=== PATIENT | female | born 1940 | race Caucasian/White ===

== ENCOUNTER 2024-02-02 17:49 | Emergency (ER) | payer MEDICARE, SELFPAY ==
[2024-02-02 18:12] VITALS: BP 161/83
--- NOTE | 2024-02-02 19:40 | ED.MUSCINJ ---
HPI-Injury
General
Chief Complaint: Fall
Source: patient
Exam Limitations: none
Time Seen by Provider: 02/02/24 19:26
Travel History
Have you had any contact with someone who has COVID-19?: No
Do you have any symptoms of coronavirus? Fever > 100 degrees, chills, cough, shortness of breath, sore throat, loss of taste or smell, muscle aches, or headache?: No
History of Present Illness-Injury
Initial Injury comments:
83-year-old female [id number] presents with left shoulder and left wrist pain after falling down a step. This happened earlier this morning. She did not hit her head. She is not anticoagulated. She is companied by her son and .
She lives with both of them. She typically does use a walker to ambulate. They also have a wheelchair in the house.
Past History
Past History
ED Past Medical History: HTN
ED Past Surgical History: Orthopedic
Social History
Tobacco: Non-smoker
Alcohol: None
Drug: None
Personal:
Living: with family
Phy Exam
Physical Exam
Physical Exam:
General: Well-appearing female no acute respiratory distress
HEENT: NC/AT
MSK: Spine nontender, left shoulder tender over proximal humerus. Left wrist tender as well with swelling.
skin Is intactc
Vascular: 2+ radial pulse left wrist
Injury Course
Orders/Labs/Results
Orders:
Orders
02/02/24 18:13
CR Humerus - Left Min 2 Views* Urgent
Comment:
Reason For Exam: pain, trauma
Hand, Left 3 View [CR Hand - Left Min 3 Views] Urgent
Comment:
Reason For Exam: pain, trauma
02/02/24 19:47
Acetaminophen [Tylenol] 650 mg PO NOW STA
MDM/Problems Addressed
Differential Diagnosis Includes:
Mechanical fall with left wrist and shoulder pain. Consider fracture or sprain versus dislocation. I personally visualized x-rays of the left humerus which demonstrate a proximal humerus fracture slightly angulated
And the left hand x-rays demonstrate a slightly angulated distal radius fracture. This is extra-articular. Patient will be placed in a volar wrist splint and a sling. She is accompanied by family. They are okay with discharge and follow-up with
orthopedics.
*Critical Care Note
Total Time (30-74mins, 75-104mins- exclusive of procedures): Not Applicable
ED Attending Note
-
Portions of this chart may have been created with voice recognition software.� Occasional wrong word or��sound alike� substitutions may have occurred due to the inherent limitations of voice recognition software.
Discharge Plan
Departure
Patient Disposition: Home (Routine Discharge)
Date of Disposition: 02/02/24
Time of Disposition: 19:46
Patient with high blood pressure during this ER visit?: No
Discharge Problem:
Fracture of proximal end of humerus, Distal radius fracture, left
Instructions: Muscle and Bone Pain (DC)
Referrals:
Jack Conde MD [Family Provider] -
Kirit Dupont MD [Active] -
Activity Restrictions/Additional Instructions:
Keep splint on and dry. Use sling for support. Use Tylenol for pain. Return if worse otherwise follow-up with orthopedics
Interventions
Interventions:
*Risk Screen - Suicide Last Done: 02/02/24 20:32
*General Assessment Last Done: 02/02/24 20:32
*Neglect/Abuse Screening Last Done: 02/02/24 20:32
ED- Fall Risk Assessment Last Done: 02/02/24 20:33
*ED COVID-19 Vaccine History Last Done: 02/02/24 20:32
*Nursing Disposition Last Done: 02/02/24 20:33
ED-Musculoskeletal Assessment Last Done: 02/02/24 20:32
ED- Neurological Assessment Last Done: 02/02/24 20:32
ED-Skin Assessment Last Done: 02/02/24 20:32
Discharge Date and Time
Discharge Date/Time: 02/02/24 20:33
Print Language: PARAGUAYAN
[2024-02-02] MEDS: TYLENOL 650 MG PO (20:22)
== END 2024-02-02 20:33 | disposition home or self-care (01) ==
LOC: EMR 17:49
PROVIDERS: EMERGENCY PHYSICIAN Emergency Medicine; FAMILY PHYSICIAN Internal Medicine
DX: S42.202A Unspecified fracture of upper end of left humerus, initial encounter for closed fracture (principal); S52.502A Unspecified fracture of the lower end of left radius, initial encounter for closed fracture; W10.9XXA Fall (on) (from) unspecified stairs and steps, initial encounter; I10 Essential (primary) hypertension
CPT/HCPCS: 99283; 29125; 73060; 73130

== ENCOUNTER 2024-08-29 23:12 | Inpatient (IN) | payer MEDICARE, SELFPAY ==
[2024-08-29 16:29] VITALS: BP 112/74
--- NOTE | 2024-08-29 17:35 | ED.GENMED ---
History of Present Illness
General
Chief Complaint: Fall
Source: patient and family
Time Seen by Provider: 08/29/24 17:24
History of Present Illness
History of Present Illness:
83-year-old female presents emergency department after a fall last night around 11 PM. In the presence of her , she was walking up the steps and fell backwards from the height of 1 step. She did not hit her head. She was assisted up and
brought over to the couch where she slept for the night. Since waking today, she is complain of pain in the left hip/pelvic area with standing and walking. She at one point was complaint of left shoulder pain although she denies to me now.
Patient denies any other complaints.
Past History
Past History
ED Past Medical History: HTN and Other (Dementia)
ED Past Surgical History: Orthopedic
Social History
Tobacco: Non-smoker
Alcohol: None
Drug: None
Personal:
Living: with family
Phy Exam
Physical Exam
Physical Exam:
GENERAL: Alert , in no apparent distress
EYE: pupils equal and reactive, no photophobia, no nystagmus
NECK: Supple, no significant adenopathy cervical collar in place, no midline tenderness.
ENT: o/p clr, mmm, no rapp, no raccoon.
CARDIAC: Regular rate and rhythm .
LUNGS: Clear breath sounds bilaterally, no acute respiratory distress, no wheezes/rales/rhonchi
ABDOMEN: Soft, without focal tenderness, no r/g
NEUROLOGICAL: Alert but not fully oriented, no focal neuro deficits
SKIN: Warm and dry, skin intact.
MUSCULOSKELETAL: No edema, well perfused. FROM of le bilaterally however c/o pain with L le ROM at hip area, no shortening/deformity, nvit. FROM of ue bilat without limitation or pain.
PSYCH: Normal and appropriate interaction.
Course
Orders/Labs/Results
Orders:
Orders
08/29/24 17:33
CT Cervical Spine W/o Iv Contr Urgent
Comment:
Reason For Exam: FALL
CT Head W/o Iv Contrast Urgent
Comment:
Reason For Exam: DEMENTIA, FALL
Hip, Left 2-3 Views [CR Hip - LT w/wo Pel 2-3 Vw*] Urgent
Comment:
Reason For Exam: FALL
Include a pelvis x-ray?: Yes
08/29/24 17:38
Shoulder, Left, Trauma CR [CR Shoulder, Trauma - Left] Urgent
Comment:
Reason For Exam: fall
08/29/24 18:30
CR Chest Portable - 1 View Urgent
Comment:
Reason For Exam: SUSPECTED L PTX
Reason Study Needs to be Portable: Unable to Transport
08/29/24 20:05
Complete Blood Count/With Diff Urgent
Comprehensive Metabolic Panel Urgent
08/29/24 20:08
Morphine Sulfate 4 mg .ROUTE .STK-MED ONE
08/29/24 20:09
Morphine Sulfate 4 mg IV NOW STA
08/29/24 20:43
Cr Chest Portable [CR Chest Portable - 1 View] Urgent
Comment:
Reason For Exam: post chest tube insertion
Reason Study Needs to be Portable: Unable to Transport
08/29/24 21:04
CT Chest W/o Iv Contrast Urgent
Comment:
Reason For Exam: ptx, trauma
Abnormal Lab Results
08/29/24
20:05
RBC 3.68 L 10^6/uL
(4.20-5.40)
Hgb 11.5 L g/dL
(12.0-16.0)
Hct 33.2 L %
(37.0-47.0)
MCH 31.3 H pg
(27.0-31.0)
Absolute Lymphs (auto) 0.8 L 10^3/uL
(1.2-3.4)
Absolute Monos (auto) 0.9 H 10^3/uL
(0.1-0.6)
Neutrophils % 76.4 H %
(42.2-75.2)
Lymphocytes % 9.9 L %
(20.5-51.1)
Monocytes % 11.5 H %
(1.7-9.3)
BUN 37 H mg/dl
(7-17)
Total Protein 5.4 L g/dl
(6.3-8.2)
Albumin 3.0 L g/dl
(3.5-5.0)
08/29/24 20:05
08/29/24 20:05
Vital Signs
Initial and Last Documented VS:
Initial Vital Signs
Temp Pulse Resp BP Pulse Ox
98.2 F 80 18 112/74 98
08/29/24 16:29 08/29/24 16:29 08/29/24 16:29 08/29/24 16:29 08/29/24 16:29
Last Documented Vital Signs
Temp Pulse Resp BP Pulse Ox
97.9 F 87 19 112/74 97
08/29/24 20:14 08/29/24 21:15 08/29/24 21:15 08/29/24 16:29 08/29/24 21:00
Procedures
Chest Tube
Indication for procedure:: ptx
Procedure completed by: Carolee Huizar MD
Consent form signed: Yes
If no, reason: Emergency procedure
Anesthesia: 1% Lidocaine with Epi
Chest tube placed to: left side
Preparation: cleaned with Betadine
Chest tube position: fourth interspace
Chest tube sutured to skin?: Yes
Chest tube complications: none
Additional information:
post procedures, ptx resolved
Update Note
Update Note:
Patient presents to the Emergency Department with ___fall
Number and Complexity of Problems Addressed at the Encounter
� Chronic conditions affecting care:
� Acute Exacerbation and/or Progression of Chronic Illness:
� Differential Diagnosis includes: But not limited to hip fracture, pelvic fracture, shoulder fracture, cervical fracture, etc. etc.
Amount and/or Complexity of Data to be Reviewed and Analyzed
� I performed an independent evaluation of and my interpretation is:
EKG:
CT:
Xrays:Linear lucency along the left superior pubic ramus, suspicious for nondisplaced fracture.
There is no evidence of left hip dislocation or proximal femoral fracture.
Chronic comminuted left proximal humeral fracture which appears overall similar to prior radiograph from 01/2024.
2 mm hyperdensity along the posterior falx which tracks along the left tentorial leaflet, which likely represents small subdural hematoma. There is no associated mass effect.No acute osseous abnormality.
Multilevel degenerative changes with moderate degenerative changes at C6-C7 and C7-T1.
Partially visualized prominent left apical pneumothorax.
CT chest: Pigtail left chest tube in the lateral mid left hemithorax which, in comparison to chest radiograph earlier in same day, no residual pneumothorax is seen. Some bibasilar subsegmental atelectasis, left greater than right and tiny left
pleural effusion.
Cannot exclude nondisplaced fractures of the left posterolateral sixth, seventh and eighth ribs. Old healed healed fracture of the posterior left ninth rib is seen.
Nonspecific small left upper lobe groundglass opacity and small bilateral tree-in-bud nodular opacities, as noted above, possibly inflammatory/infectious.
Mild cardiomegaly. Mild pericardial thickening versus tiny pericardial effusion. Coronary artery calcifications.
2.2 cm low-attenuation right lobe hepatic lesion, INDETERMINATE, NOT COMPATIBLE WITH A SIMPLE CYST.
Laboratory Studies:mild anemia, prerenal azotemia
Other:
� Review of other/old records reveals:
� Clinical information was obtained by an independent historian: and son who are at bedside
� Prescriptions/Medications Considered but not given:
� Further testing considered but not performed:
Risk of Complications and/or Morbidity or Mortality of Patient Management
� Social determinants of health affecting care:
� Discussion with other providers (PCP, Hospitalists, Consultants, etc):
� Escalation of care including admission/observation vs risk of discharge considered: 7:17 PM text sent to [facility] neuro[facility] Dr. Wheeler regarding head CT findings. Patient and updated regarding her diagnoses here
thus far.
Dr Wheeler response From a neurosurgical standpoint, nothing to do if fall and injury was yesterday. The intracranial bleed theoretically has declared itself stable.
Pt remains neuro stable.
Pigtail catheter placed with local anesthesia, patient tolerated procedure well, pneumothorax has resolved. There is a small amount of blood noted in the tube, therefore CT was obtained to rule out hemothorax which is not noted. Suspect related to
procedure itself. Patient remains comfortable. IV fluids started given mild prerenal azotemia noted. Case discussed with Dr. Arrieta for admission.
ED Attending Note
-
Portions of this chart may have been created with voice recognition software.� Occasional wrong word or��sound alike� substitutions may have occurred due to the inherent limitations of voice recognition software.
Discharge Plan
Departure
Patient Disposition: Admit
Date of Disposition: 08/29/24
Time of Disposition: 22:11
Presentation/result/management discussed w/ accepting MD/DO: Hospitalist
Condition: Fair
Discharge Problem:
Closed rib fracture, Pneumothorax, Closed pelvic fracture, Subdural hematoma
Referrals:
Jack Conde MD [Family Provider] -
Interventions
Interventions:
*Risk Screen - Suicide Last Done: 08/29/24 19:46
*General Assessment Last Done: 08/29/24 16:59
*Neglect/Abuse Screening Last Done: 08/29/24 19:46
*ED COVID-19 Vaccine History Last Done: 08/29/24 19:46
ED-Musculoskeletal Assessment Last Done: 08/29/24 16:58
ED- Neurological Assessment Last Done: 08/29/24 16:58
ED-Skin Assessment Last Done: 08/29/24 16:58
Discharge Date and Time
Print Language: CHINESE
[2024-08-29 19:47] VITALS: BMI 15.3
[2024-08-29] MEDS: MORPHINE SULFATE 4 MG IV (20:10)
[2024-08-29 20:11] LABS: % Basophils 0.5 % (0-2); % Eosinophils 1.4 % (0-6); % Immature Granulocytes 0.3 % (0-0.5); % Lymphocytes 9.9 % (20.5-51.1); % Monocytes 11.5 % (1.7-9.3); % Neutrophils 76.4 % (42.2-75.2); Absolute Eosinophils 0.1 10^3/uL (0-0.7); Absolute Lymphocytes 0.8 10^3/uL (1.2-3.4); Absolute Monocytes 0.9 10^3/uL (0.1-0.6); Hematocrit 33.2 % (37.0-47.0); Hemoglobin 11.5 g/dL (12.0-16.0); Mean Corp Hgb Conc. 34.6 g/dL (33.0-37.0); Mean Corpuscular Hgb 31.3 pg (27.0-31.0); Mean Corpuscular Volume 90.2 fL (81.0-99.0); Mean Platelet Volume 10.4 fL (7.4-10.4); Nucleated Red Blood Cells % 0 %; Platelet Count 197 10^3/uL (130-400); Red Blood Cell Count 3.68 10^6/uL (4.20-5.40); Red Cell Dist. Width 13.3 % (11.5-14.5); White Blood Cell Count 7.9 10^3/uL (4.8-10.8)
[2024-08-29 20:31] LABS: ALT (SGPT) 20 U/L (0-35); AST (SGOT) 23 U/L (14-36); Alkaline Phosphatase 54 U/L (38-126); Blood Urea Nitrogen 37 mg/dl (7-17); Calcium 8.8 mg/dl (8.4-10.2); Carbon Dioxide 27 mmol/L (22-30); Chloride 105 mmol/L (98-107); Estimated Creatinine Clearance 48 ml/min; Glucose 82 mg/dl (70-99); Potassium 4.2 mmol/L (3.5-5.1); Sodium 140 mmol/L (135-145); Total Bilirubin 0.5 mg/dl (0.2-1.3); Total Protein 5.4 g/dl (6.3-8.2); eGFR > 60.00
[2024-08-29 22:00] VITALS: BP 163/67
[2024-08-29] MEDS: NSS 500 IV (22:57)
[2024-08-29 23:00] VITALS: BP 169/87
--- NOTE | 2024-08-29 23:05 | HPS.HSE ---
Family Physician
-
Family Physician: Jack Conde
Chief Complaint
-
Pelvic Pain, Fall
History of Present Illness
Patient is an 83y F with PMH significant for senile dementia and macular degeneration / blindness who presents to ED complaining of pelvic pain s/p fall. History obtained from patient and family at the bedside. Family is somewhat 'groggy' after
receiving morphine for pain here in the ED. Family states that patient had a fall last PM around 11PM.
She was walking up the stairs and climbed about 3 steps before falling backwards and landing on the floor. Fall was witnessed. She did strike the back of her head on the floor. She did not lose consciousness.
Family was able to help the patient up and she slept comfortably on the couch last PM.
Today, she complained of pain in the pelvis / groin area and was brought to the ED for further evaluation and treatment.
Patient also reported occasional pain in the L chest / flank area. She denies any SOB, cough. No fevers / chills. No N/V/D or urinary complaints.
In the ED, patient was noted to have L pneumothorax. A pigtail chest tube catheter was placed in the ED with resolution of pneumo on follow-up imaging.
Patient continues to deny any dyspnea. She does complain of some L shoulder discomfort s/p chest tube placement.
Medical History
Past Medical History
Past Medical History: Reports Other
Additional Past Medical History:
Senile Dementia
Hypotension
Macular Degeneration / Blindness
Past Surgical History: Reports Other
Additional Past Surgical History:
Oophorectomy
Lumpectomy
Social History
Tobacco: Non-smoker
Alcohol: None
Drug: None
Living: With Family
Family History
Family History: Not pertinent
Allergies / Home Medications
Allergies reflects when Allergies were last updated in [facility].
Home Medications with original date entered in [facility]
Allergy/Medication List:
Allergies
Allergy/AdvReac Type Severity Reaction Status Date / Time
iodine Allergy Anaphylaxis Verified 08/29/24 16:29
Home Medications
midodrine 2.5 mg tablet 2.5 mg PO BID 08/29/24
rivastigmine 13.3 mg/24 hour transdermal patch 13.3 mg transdermal DAILY 08/29/24
Review of Systems
-
History Source: Patient
A 12 point ROS was completed and negative except as noted: Yes
Constitutional: Reports Fatigue; Denies Fever or Chills
EENT: Denies Sore Throat
Respiratory: Denies Cough or Trouble Breathing
Cardiac: Reports Chest Pain; Denies Palpitations
Abdomen/GI: Denies Abdominal Pain, Nausea, Vomiting or Diarrhea
: Reports Flank Pain; Denies Dysuria
Musculoskeletal: Reports Joint Pain; Denies Edema
Neurological: Denies Dizzy or Headache
Psych: Denies Depression or Anxiety
Physical Exam
Vital Signs
Vital Signs
Temp Pulse Resp BP Pulse Ox
97.9 F 65 12 163/67 95
08/29/24 20:14 08/29/24 22:30 08/29/24 22:30 08/29/24 22:00 08/29/24 22:30
Physical Exam
General: Other (Frail, elderly female in mild distress due to pain.)
HEENT: Moist mucous membranes and PERRLA
Respiratory: Clear and Other (L chest tube in place with serosanguinous fluid in tubing.); No Wheezes, Rales or Rhonchi
Cardiac: S1/S2 and Regular Rhythm; No Murmur
GI: Soft, Non Tender, Non Distended and Normal Bowel Sounds
Musculoskeletal: No Clubbing, No Cyanosis and No Edema
Neuro: Other (Somewhat sedate following narcotic pain medication. Follows commands and answers Y/N questions.)
Laboratory Results
-
08/29/24 20:05
08/29/24 20:05
Laboratory Results
Total Bilirubin 0.5 mg/dl (0.2-1.3) 08/29/24 20:05
AST 23 U/L (14-36) 08/29/24 20:05
ALT 20 U/L (0-35) 08/29/24 20:05
Alkaline Phosphatase 54 U/L (38-126) 08/29/24 20:05
Impression/Plan
-
A/P: Patient is an 83y F with PMH significant for dementia and hypotension who presents to ED for evaluation of pelvic pain and chest pain s/p fall last PM (08/28/24).
Fall at Home
- Admit for further evaluation and treatment.
- Patient suffered multiple injuries during the fall.
- See specific below for management of each.
- PT / OT evaluations for gait assessment.
- Will likely benefit from SNF / rehab at discharge.
Left Pneumothorax
Left Rib Fractures
- Patient with noted L pneumothorax on initial CXR.
- Chest tube placed in the ED with resolution.
- Maintain chest tube to suction overnight.
- Pulmonary evaluation for further management.
- Follow for any dyspnea, hypoxemia, etc.
- CT shows possible fractures of ribs 6,7,8 posterolaterally.
- Pain control / supportive care.
Left Superior Pubic Ramus Fracture
- Non-operative management of pelvic fracture.
- Weight bearing as tolerated.
- PT / OT as noted above.
- Pain control.
Tiny SDH
- CT shows 2mm subdural hematoma along posterior falx.
- No current neurologic exam findings / focal symptoms /etc.
- Monitor for any clinical changes.
- Repeat CT in the AM to assess fo any radiographic changes.
- Neurosurgery evaluation.
Senile Dementia
- Stable. Continue rivastigmine patch daily.
Hypotension
- Patient takes midodrine at home once or twice daily per .
- Apparently becomes anxious with TID dosing.
- Continue midodrine BID for now and follow BP - supine and orthostatic.
- PT / OT evals as noted above
Macular Degeneration
Blindness
- Affects all aspects of care.
- Patient received injection therapy as an outpatient - though she is essentially completely blind at present per family.
DVT Prophylaxis: SCDs
Code Status: Full
[2024-08-30] VITALS (32 sets, daily range): BP systolic 113–188; BP diastolic 63–114; BMI 14.8
[2024-08-30] MEDS: DILAUDID 0.5 MG IV ×2 (00:42→05:20)
--- NOTE | 2024-08-30 01:32 | PTCARENOTE ---
Pt transferred from ED via stretcher, admitted to room 3367. Pt Ox2, disoriented to time. L pupil 3mm/brisk, R pupil 2mm/brisk. SR-60s. Pulses palpable. Received on RA, desat to mid 80s--placed on 2L NC, now pulse ox 99-100%. L CT to 20cm suction,
small amount of bloody drainage. Bowel sounds active, no BM. Purewick in place, yellow urine. Safe environment maintained, call cardoza within reach, remains at bedside.
[2024-08-30] MEDS: APRESOLINE 5 MG IV ×3 (02:27→17:09)
[2024-08-30 05:32] LABS: Hemoglobin 11.8 g/dL (12.0-16.0); Mean Corp Hgb Conc. 33.7 g/dL (33.0-37.0); Mean Corpuscular Hgb 31.5 pg (27.0-31.0); Mean Corpuscular Volume 93.3 fL (81.0-99.0); Mean Platelet Volume 10.3 fL (7.4-10.4); Platelet Count 195 10^3/uL (130-400); Red Blood Cell Count 3.75 10^6/uL (4.20-5.40); Red Cell Dist. Width 13.2 % (11.5-14.5); White Blood Cell Count 9.9 10^3/uL (4.8-10.8)
[2024-08-30 05:43] LABS: Blood Urea Nitrogen 33 mg/dl (7-17); Calcium 8.5 mg/dl (8.4-10.2); Carbon Dioxide 30 mmol/L (22-30); Chloride 105 mmol/L (98-107); Estimated Creatinine Clearance 48 ml/min; Glucose 111 mg/dl (70-99); Potassium 4.5 mmol/L (3.5-5.1); Sodium 141 mmol/L (135-145); eGFR > 60.00
--- NOTE | 2024-08-30 07:30 | PTCARENOTE ---
Received patient from plastic mixer. patient is awake, alert, disoriented, legs are swung over side of bed, present at bedside. Called med sitter for remote monitoring/safety. Attempted to reorient patient to time, place, situation but
patient remains confused and impulsive. She is on 2L nasal cannula with left sided chest tube. physician in, placed chest tube to water seal. Patient is sinus rhythm on monitor. no edema, SCDs on for DVT prophylaxis. Patient made NPO.
stated that she does cough with medications, speech consult made. Patient has purewick in place for urinary incontinence. Plan to repeat CT scan this morning. Will review orders, bed in lowest position and exit alarm on.
[2024-08-30] MEDS: EXELON PATCH 13.3 MG TRANSDERM (08:03)
--- NOTE | 2024-08-30 08:54 | CM ---
Addendum entered by Huma Ng 08/30/24 17:01:
Patient now for discharge/transfer to [facility] re;trauma following extensive discussions with physicians and patient . CM will follow for discharge planning needs.
Plan; transfer to trauma center;
Original Note:
Patient seen at bedside with patient also present. Patient lives with in a condo with 13 steps to bedroom. Patient currently in restraints and mitts, confused and on O2. Patient states that patient was in [place] approx 6
months ago and had [facility] at discharge. CM will continue to follow for discharge planning needs.
Plan; SNF
--- NOTE | 2024-08-30 09:38 | W.PN.HOSP.TC ---
Addendum entered and electronically signed by Taisha Worthington MD 08/31/24 12:17:
severe protein calorie malnutrition--apprec nutrition input
Addendum entered and electronically signed by Taisha Worthington MD 08/30/24 18:19:
I saw and evaluated the patient independently. I reviewed the resident�s note and agree with findings and plan as documented by Dr. Hendricks.
GENERAL: elderly frail confused female agitated, trying to get out of bed
HEENT: NC/AT--O2 NC in place
HEART: regular rate and rhythm, +S1, +S2
LUNGS : clear to auscultation bilaterally--chest tube in left chest
ABDOM: soft, nontender, nondistended, + bowel sounds
EXT: no cyanosis, clubbing, or edema
NEUROLOGIC: apparent dementia--moves all extremities
trauma -- as a result of a witnessed fall from 3 stairs, falling backward and hitting her head--sustained acute 2mm SDH, acute 6th, 7th, 8th left rib fractures, acute pelvic fractures, acute left tension PTX requiring emergent chest tube--was placed
in ICU as IMU overflow and repeat head CT showed increasing from 2 to 3 mm SDH--CT scan abdomen/pelvis ordered by our team shows acute sacral ala fracture and acute compression fractures T12, L1-2---speech recommended NPO--cannot use mental status
to monitor for SDH expansion given dementia--Pain control: alternate standing tylenol and motrin, oxycodone 2.5mg prn for severe breakthrough pain, dilaudid 0.25mg for pain not relieved by oxycodone. Avoid sedating doses to monitor neuro status---
Will eventually need PT/OT evaluation- defer today and maintain bedrest pending further workup and consults
seen by neurosurgery--neuro exam nonfocal but limited by dementia
--called [facility] re: above findings--accepted without question to their trauma ICU under the care of Dr. Maier--recommended loading with 1 gm of IV keppra now, obtaining full imaging on disc and printout of reports---
family in agreement with transfer to trauma center
Chronic ambulatory dysfunction--multiple falls at home--will need SNF at d/c likely
Left tension pneumothorax/Left rib fractures--Chest tube placed in ED, maintained to suction, follow up xray with resolution of L PTX--apprec pulm consult--following CXR re: PTX and chest tube- CT shows posterolateral fractures
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
Hypotension prior to admission--on chronic midodrine therapy but with elevated BPs here--PRN hydralazine for now
Macular degeneration/blindness--impacts care moving forward
Code status: Full (discussed with this AM)
VTE ppx: SCDs
Total Critical Care Time including discharge time = 90 minutes. I was immediately available to the patient and staff. I personally examined, reviewed labs, diagnostic images/reports, interpretations, treatment plans, discussed patient care with
other providers and family or caregivers (if patient is unable to make decisions), entered orders as appropriate and documented the medical record.
Original Note:
Today's Communication/Plan
-
CT abd/pelvis, repeat head CT, bedrest, pain control, hydralazine
Consults: neurosurgery, pulm, psychiatry, speech therapy
Assessment / Plan
Assessment / Plan
83yo F with H dementia, blindness/macular degeneration, ambulatory dysfunction and prior falls who presented to ED 08/29/24 after sustaining a fall 1 day prior. On 08/28/24 at about 11pm, she was walking up the stairs and climbed about 3 steps
before falling backwards and landing on the floor. The back of her head hit the floor, no loss of consciousness. Fall was witnessed. Family helped her to couch where she slept overnight. On day of ED presentation, complained of pain in pelvis, groin.
Trauma, s/p fall from 3 stairs
Chronic ambulatory dysfunction
- Admitted to ICU
- Sustained multiple injuries during trauma, see problem list below
- Will eventually need PT/OT evaluation- defer today and maintain bedrest pending further workup and consults
- Pain control: alternate standing tylenol and motrin, oxycodone 2.5mg prn for severe breakthrough pain, dilaudid 0.25mg for pain not relieved by oxycodone. Avoid sedating doses to monitor neuro status.
- Will obtain CT abdomen/pelvis to further evaluate possible injuries
Head impact
Subdural hematoma
- Head CT shows 2mm SDH along posterior falx
- Neurological exam nonfocal
- Obtain repeat head CT this AM and monitor for progression
- Neurosurgery consult ordered
- Maintain bedrest today pending further evaluation
Left pneumothorax
Left rib fractures
- Chest tube placed in ED, maintained to suction, follow up xray with resolution of L PTX
- CT shows posterolateral fractures of ribs 6, 7, 8
- Pulm consult for further management, appreciate recs
- Continue pain management and supportive care as above
Left superior pubic ramus fracture
- Nonoperative management
- Maintain bedrest today. Will need PT/OT evaluation eventually; reassess tomorrow.
- Continue pain management and supportive care as above
Senile dementia
- Oriented to self only
- Agitated and attempting to get out of bed and remove equipment- will use soft mitts, medsitter, and consult psychiatry for recommendations.
- Continue home rivastigmine patch daily
- Will get speech evaluation
Hypotension prior to admission
Elevated BPs
- At home takes midodrine 1-2 times per day
- BPs elevated inpatient, will begin hydralazine 5mg IV q6h for systolic BP >160
Macular degeneration/blindness
Code status: Full (discussed with this AM)
VTE ppx: SCDs
Diet: NPO pending speech eval
Dispo planning: TBD
Anticipated Discharge: > 48 hours
Subjective/Interval History
-
Date of Service: August 30, 2024
No acute events overnight, admitted 23:05 08/29. Confused, dementia apparent, attempting to climb out of bed and requesting to ambulate. Otherwise no complaints
Objective Data
-
Labs:
Laboratory Results
08/30/24
05:13
WBC 9.9
Hgb 11.8 L
Hct 35.0 L
Plt Count 195
Sodium 141
Potassium 4.5
Chloride 105
Carbon Dioxide 30
BUN 33 H
Creatinine 0.6
Glucose 111 H
Calcium 8.5
Vital Signs:
Vital Signs
Temp Pulse Resp BP Pulse Ox
98.1 F 83 11 177/87 99
08/30/24 07:49 08/30/24 08:03 08/30/24 06:30 08/30/24 08:03 08/30/24 06:30
I&O
08/29/24 08/30/24 08/31/24
06:59 06:59 06:59
Output Total 155 / 155
Balance -155 / -155
Review of Systems
-
Unable to obtain full review of systems at this time due to: Dementia
Physical Exam
-
General: Appears in Distress (restless, attempting to get out of bed, pulling off mitts), Appears Chronically Ill and Cachectic
HEENT: Normocephalic and Atraumatic
Respiratory: Non Labored Respirations and Other (patient refused auscultation, grabbed stethoscope repeatedly)
Cardiac: Regular Rhythm (on director of cardiac rehabilitation)
GI: Soft, Nontender, Nondistended and Normal Bowel Sounds
Musculoskeletal: No Edema and Other (+SCDs)
Skin: Warm and Dry
Neuro: Awake and Alert; Negative Oriented (oriented to self; says she is at [place])
Psych: Confused, Agitated, Apparent Dementia and Other (says she is scared); Negative Intact Judgement/Insight
Data Reviewed
-
Diagnostic Radiology: Image personally visualized and interpreted and Report Reviewed by me
CT Scan: Image personally visualized and interpreted and Report Reviewed by me
Labs: Labs Reviewed by me
--- NOTE | 2024-08-30 10:43 | CON.PUL ---
Consultation
Consultation Request
Date/Time Consultation Requested: 08/30/2024
Date/Time Consultation Performed: 08/30/2024
Requesting Provider: Dr. Wallace
Performing Provider: Dr. Lon Oreilly
Reason for Consultation: Traumatic pneumothorax
Medical History
-
History of Present Illness:
83-year-old woman with history of advanced dementia, macular degeneration/blindness presented to the emergency room status post a fall. Patient unable to provide history. Patient fell backwards from the stairs. There was no loss of consciousness
reported.
Following date reported significant pelvic pain.
She was brought into the emergency room for evaluation.
Found to have a left pelvis rami fracture.
Small subarachnoid hemorrhage
Also a left-sided pneumothorax.
Chest tube was placed in the emergency room.
This morning patient is alert, cooperative.
Denies any chest pain.
Chest tube in place without air leak
Past Medical History
Past Medical History: Other (See assessment and plan)
Social History
Tobacco: Non-smoker
Alcohol: None
Drug: None
Personal:
Living: With Family
Family History
Family History: Unable to Obtain (Underlying dementia)
Allergies / Home Medications
Allergies
Allergy/AdvReac Type Severity Reaction Status Date / Time
iodine Allergy Anaphylaxis Verified 08/29/24 16:29
Home Medications
�Medication �Instructions �Recorded �Confirmed �Last Taken �Type
midodrine 2.5 mg tablet 2.5 mg PO BID 08/29/24 08/29/24 Unknown History
rivastigmine 13.3 mg/24 hour 13.3 mg transdermal DAILY 08/29/24 08/29/24 Unknown History
transdermal patch
Review of Systems
-
Unable to Obtain full review of systems at this time due to: Dementia
Vitals / Labs / Diagnostic Testing
Vital Signs
Temp Pulse Resp BP Pulse Ox
98.1 F 70 8 165/77 100
08/30/24 07:49 08/30/24 09:30 08/30/24 09:30 08/30/24 09:30 08/30/24 09:30
Lab Data
08/30/24 05:13
08/30/24 05:13
Diagnostic Testing:
Physical Exam
-
HEENT: Normocephalic
Cardiovascular: S1/S2
Respiratory: Non-Labored Respirations and Other (Chest tube in place without air leak)
GI: Soft and Non Distended
Neurology: Awake
Skin: Warm
General: Comfortable and Other (Cachectic)
Assessment
-
83-year-old woman with advanced dementia, status post fall at home. Found to have a left pneumothorax, left pelvis ramus fracture and subdural hematoma.
We were consulted for chest tube management.
-
Left traumatic pneumothorax status post chest tube placement 08/29/2024.
Status post fall
Left-sided rib fracture
CT chest reviewed: Left chest tube in place, minimal pleural effusion.Cannot exclude nondisplaced fractures of the left posterolateral sixth, seventh and eighth ribs. Old healed healed fracture of the posterior left ninth rib is seen. Mild
pericardial thickening. 2.2 cm low-attenuation right hepatic lesion.
Subdural hematoma-a small
Left pubic ramus fracture
Conditions present prior admission:
Advanced dementia
Weight loss
Assessment and plan:
From the pulmonary perspective, chest tube is in place.
There was no airleak with deep inspiration or coughing.
[facility] Around 9 AM 08/30/2024
Chest x-ray post chest tube placement showed resolution of pneumothorax.
Chest x-ray will be repeated at 1 PM. If there is no recurrent pneumothorax, chest tube will be clamped and chest x-ray will be obtained around 4:00.
Hopefully can discontinue chest tube either later today or tomorrow morning.
Rate of recurrence likely low as there is no underlying parenchymal lung abnormality on CAT scan.
-
Wean off oxygen.
Aspiration precautions.
-
Monitor mental status with small subdural hematoma.
Neurosurgery has been consulted.
-
Pelvic ramus fracture. Conservative management. Nonsurgical.
Pain management
Per
-
DVT prophylaxis
-
Will follow
[2024-08-30] MEDS: TYLENOL ORAL SOLUTION 650 MG PO (11:08)
--- NOTE | 2024-08-30 11:43 | PTCARENOTE ---
Took patient to CT scan, returned, asked for order for htn. hydralazine given,
--- NOTE | 2024-08-30 13:37 | PTOTSP ---
SPEECH THERAPY SWALLOW AND SPEECH/LANGUAGE/COGNITIVE COMMUNICATION EVALUATION:
Patient exhibits clinical signs of oropharyngeal dysphagia, likely chronic related to dementia and acutely exacerbated by SDH, Left pneumothorax, critical illness. Pt remains at high risk for aspiration and related complications given lethargy and
confusion. Bilateral mitt restraints in place at this time. reported history of coughing during meals. Chest CT concerning for possibly infectious/inflammatory opacities. Recommend temporary NPO at this time except for necessary medications
crushed in applesauce. Recommend ST to re-assess in 24 hours. Pt will likely benefit from VSE to assess swallow physiology; However, pt is not appropriate for VSE at this time given mental status. Recommend ST to determine readiness for VSE in 24
hours, determine readiness for additional p.o. trials, and provide continued diagnostic swallow therapy as appropriate. Extensive education provided to pt's regarding recommendations, normal vs. abnormal swallowing, aspiration-related
complications, VSE procedure, and plan of care. expressed concerns regarding malnutrition and requested IV nutrition/hydration. Discussed concerns with Dr. Worthington and Dr. Hendricks.
Pt exhibits moderate receptive and expressive language impairments and moderate-severe cognitive communication impairments characterized by impairments in the following areas: Auditory comprehension, object recognition, verbal expression, attention,
STM, insight, safety awareness, processing speed. Deficits likely related to pre-existing history of dementia, and acutely exacerbated by SDH following a fall. Recommend trial ST services to address cognitive communication impairments, as
reporting pt is below baseline level of functioning at this time.
RECOMMEND:
1) temporary NPO
2) necessary medications crushed in puree
3) consider temporary non-oral nutrition/medication/hydration
4) ST to re-assess in 24 hours, determine readiness for VSE
5) VSE when appropriate
6) Trial ST services for cognitive communication given SDH
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
[2024-08-30] MEDS: NSS 1000 IV (14:29)
--- NOTE | 2024-08-30 14:35 | PTCARENOTE ---
Chest tube is now clamped per Dr. Oreilly. Will repeat CXR in 2 hours
[2024-08-30] MEDS: RISPERDAL M-TAB (ORALLY DISINTEGRATING) 0.25 MG PO (15:05)
--- NOTE | 2024-08-30 15:14 | W.PN.UPDATE ---
Update Note
Progress Note Update
At bedside with Dr. Worthington to update patient and . Reviewed additional fractures revealed on abd/pel CT. Given her fall from 3 stairs, head injury with subdural hematoma, and extensive fractures, she would benefit from transfer to trauma
center. We discussed this extensively with who is resistant to this, he would like to remain at for ongoing care. We recommend transfer to [facility] trauma center, and he would like more time to consider and discuss with his family. Will
revisit conversation with . At this time plan remains to repeat chest xray and head CT this evening.
[2024-08-30] MEDS: DILAUDID 0.25 MG IV (15:22)
--- NOTE | 2024-08-30 16:04 | CON.NS ---
Addendum entered and electronically signed by Kendra Wheeler MD 08/30/24 16:26:
Patient seen and examined. is at bedside. There is discussion regarding possible transfer to trauma center.
Patient is awake, and follows simple commands. She is oriented only to person.
Appears to be agitated, but moving both upper and lower extremities spontaneously and symmetrically.
Cranial nerves II through XII are grossly intact.
Difficult to
determine whether patient has back pain on palpation.
I reviewed the note the report regarding the possible increase in subdural hematoma. I personally interpreted and viewed the imaging myself. This is likely redistribution of subdural hematoma, and not definitively increased in size.
This was communicated to the patient's .
CT of the abdomen/pelvis was performed. There is evidence of L2 superior endplate compression deformity, as well as T12 compression deformity. There is no obvious evidence of retropulsion. There is no obvious evidence of canal compromise. It is
unclear whether fractures are acute versus chronic.
Assessment and plan addendum:
With regards to the compression deformities at T12, L2, patient has distracting injuries including pubic rami fractures, as well as sacral ala fractures. Would recommend weightbearing as tolerated. If patient develops significant back pain upon
mobilization, then would recommend TLSO brace as tolerated.
Original Note:
Consultation
-
Date/Time Consultation Performed: 08/30/2024; 16:00
Performing Provider: Liam
Chief Complaint
History of Present Illness
This is a neurosurgical consultation on 83-year-old female with a known condition of senile dementia, blindness, who presented after complaints of pelvic pain, after she reportedly sustained a fall. History was obtained from chart review, as well
as patient. Fall occurred on the evening of 08/28/2024. She fell back, landed on the floor. She did strike the back of her head. She had a noncontrast CT which demonstrated subdural hematoma. She presented to the emergency room, and workup
revealed left-sided pneumothorax, as well as pelvic fractures. She was admitted to the ICU for further management of pneumothorax, superior pubic rami fracture, as well as subdural hematoma.
Review of Systems
-
At time of review of systems including constitutional, ENT, cardiovascular, respiratory, GI, , neurologic, endocrinology, hematologic, was performed and was negative except for stated in HPI.
Medication and Allergies
Home Medications
Home Medications
�Medication �Instructions �Recorded
midodrine 2.5 mg tablet 2.5 mg PO BID Blood Pressure 08/29/24
rivastigmine 13.3 mg/24 hour 13.3 mg transdermal DAILY 08/29/24
transdermal patch Neurological Condition
Allergies
Allergies
Allergy/AdvReac Type Severity Reaction Status Date / Time
iodine Allergy Anaphylaxis Verified 08/29/24 16:29
Physical Exam
-
Exam:
Noncontrast CT scans of the head performed on 08/29/2024 were personally viewed and interpreted by me. Follow-up imaging on 08/30/2024 at approximately 6 AM was also personally interpreted by me. On my personal interpretation, there is evidence of
subtle hyperdensity along the posterior aspect of the interhemispheric fissure/falx, with extension to the left tentorium, consistent with subdural hematoma. No evidence of brain compression is seen.
Problems
-
Problem Status Onset Code
Subdural hematoma S06.5XAA
Closed pelvic fracture S32.9XXA
Pneumothorax J93.9
Closed rib fracture S22.39XA
Assessment / Plan
-
This is a 83-year-old female who presented after a fall. Noncontrast head CT demonstrates stable sliver parafalcine subdural hematoma. Given stability of hematoma, no need for neurosurgical invasive intervention.
Okay for DVT prophylaxis.
Okay to transfer out of ICU from neurosurgical standpoint
Okay to liberalize neurochecks.
Further management per ICU/medicine.
Patient can go home per my specialty: Tomorrow
[2024-08-30] MEDS: KEPPRA 1000 MG IV (17:08)
[2024-08-30] MEDS: TYLENOL ORAL SOLUTION PO (17:15)
--- NOTE | 2024-08-30 17:32 | PTCARENOTE ---
facilitating transport to trauma center.
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
--- NOTE | 2024-08-30 17:52 | W.DCSUMMARY ---
Addendum entered and electronically signed by Taisha Worthington MD 08/30/24 18:25:
Read, reviewed, and agree. See same day progress note for additional details. Time spent coordinating care, DC planning, review of DC plan of care with resident, transition of care, review of records in EMR, med rec, consults, notes, d/w
consultants, nursing, family, and CM = 90 minutes
Original Note:
Discharge Summary
Discharge Data
Date of Admission: 08/29/24
Date of Discharge: 08/30/24
-
Pending Results: No
Hospital Course
Discharging Physician : Dr. Hendricks, Dr. Worthington
Disposition : Transfer to Trauma ICU at [facility] (Dr. Maier)
Primary care physician : Jack Conde
Principal Discharge diagnosis : Trauma, status post fall from 3 steps, subdural hematoma, left-sided pneumothorax with evidence of tension, status post chest tube, posterolateral fractures of left 6th 7th 8th ribs, left superior and inferior pubic
rami fractures with minor displacement, sacral ala fracture, L2 superior endplate compression fracture, T12 compression fracture, hepatic lesion
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
Hospital Course : Presented to ED 08/29/24 after sustaining a fall 1 day prior. On 08/28/24 at about 11pm, she was walking up the stairs and climbed about 3 steps before falling backwards and landing on the floor. The back of her head hit the floor,
no loss of consciousness. Fall was witnessed. Family helped her to couch where she slept overnight. On day of ED presentation, complained of pain in pelvis, groin. In ED she was found to have subdural hematoma, left-sided pneumothorax, rib
fractures, pelvic fracture. Her pneumothorax was treated with a pigtail chest tube to suction. Her pain was adequately controlled though the morphine made her drowsier than baseline. She was admitted to ICU. Further imaging showed additional
compression fractures of spine and sacral ala fracture. Repeat head CT showed potential worsening of subdural hematoma from 2mm to 3mm. Neurosurgery consulted- review of head CT demonstrates stable sliver parafalcine subdural hematoma. Pulmonology
was consulted- Dr. Payne placed chest tube to waterseal and repeat chest xray showed resolution of pneumothorax. Psychiatry was consulted- Dr. Trujillo recommended prn risperdal 0.25mg for agitation. Her BPs remained elevated this
hospitalization and she was started on IV hydralazine. Given extensive injuries, decision was made to transfer patient to trauma center for ongoing care. Will be transfered to Trauma ICU at [facility] per Dr. Maier via ambulance. She
received 1g kepra IV prior to transfer.
Important imaging findings :
Cervical spine CT 08/29/24
IMPRESSION:
No acute osseous abnormality.
Multilevel degenerative changes with moderate degenerative changes at C6-C7 and C7-T1.
Partially visualized prominent left apical pneumothorax.
Head CT without contrast 08/29/24
IMPRESSION:
2 mm hyperdensity along the posterior falx which tracks along the left tentorial leaflet, which likely represents small subdural hematoma. There is no associated mass effect.
Hip xray 08/29/24
IMPRESSION:
Linear lucency along the left superior pubic ramus, suspicious for nondisplaced fracture.
Shoulder xray 08/29/24
IMPRESSION:
Chronic comminuted left proximal humeral fracture which appears overall similar to prior radiograph from 01/2024.
Chest xray 08/29/24
IMPRESSION:
Moderate/large left pneumothorax with associated partial collapse of the left lung. There is radiographic evidence of tension.
Chest xray 08/29/24
IMPRESSION:
Placement of left-sided chest tube with significantly decreased, likely resolved left pneumothorax.
Chest CT 08/29/24
IMPRESSION:
Pigtail left chest tube in the lateral mid left hemithorax which, in comparison to chest radiograph earlier in same day, no residual pneumothorax is seen. Some bibasilar subsegmental atelectasis, left greater than right and tiny left pleural
effusion.
Cannot exclude nondisplaced fractures of the left posterolateral sixth, seventh and eighth ribs. Old healed healed fracture of the posterior left ninth rib is seen.
Nonspecific small left upper lobe groundglass opacity and small bilateral tree-in-bud nodular opacities, as noted above, possibly inflammatory/infectious.
Mild cardiomegaly. Mild pericardial thickening versus tiny pericardial effusion. Coronary artery calcifications.
2.2 cm low-attenuation right lobe hepatic lesion, INDETERMINATE, NOT COMPATIBLE WITH A SIMPLE CYST.
Head CT 08/30/24
IMPRESSION:
Small subdural hematoma of the posterior falx and left tentorial leaflet measuring 3 mm, very minimally increased compared to 2 mm on the head CT from 08/29/2024.
Abdomen/pelvis CT 08/30/24
IMPRESSION:
Limited examination secondary to the absence of intravenous and oral contrast, motion artifact, and the patient's arms down position.
1. Acute fractures of the left superior and inferior pubic rami.
2. Probable nondisplaced fracture of the left sacral ala.
3. Compression fractures of T12 and L2 are age indeterminate but may be acute or subacute.
4. Indeterminate 2.3 cm lesion in the liver at the hepatic dome.
Chest xray 08/30/24
IMPRESSION:
Left-sided chest tube is unchanged. Left-sided pneumothorax appears resolved.
Left humeral fracture is unchanged from January 2024
Chest xray 08/30/24
IMPRESSION:
Left chest tube again seen.
No findings to confirm pneumothorax.
Procedure findings :
Speech therapy swallow and speech/language/cognitive communication evaluation 08/30/24
RECOMMEND:
1) temporary NPO
2) necessary medications crushed in puree
3) consider temporary non-oral nutrition/medication/hydration
4) ST to re-assess in 24 hours, determine readiness for VSE
5) VSE when appropriate
6) Trial ST services for cognitive communication given SDH
Discharge Plan
-
Patient Disposition: Acute Care Hospital
Condition: Critical
Discharge Date and Time
Print Language: HEBREW
--- NOTE | 2024-08-30 18:00 | PTCARENOTE ---
Report given to CHELSY Rojas at [facility]. Report called to [phone] [facility] 302.
--- NOTE | 2024-08-30 19:59 | PTCARENOTE ---
Received pt via handoff. [facility] ambulance came in to transfer pt to [facility]. Chest tube clamped. NS gtt dc'd. accompanying her in ambulance, son will follow behind in car.
--- NOTE | 2024-08-31 12:05 | PN.CDI ---
CDI
- -
CDI:
Physician Documentation Request
Admit Date: 08/29/24 23:12
Dear Doctor,
Please review the following and provide your response in the progress notes.
Clinical Indicators:
Per RD Assessment on 08/30: Patient meets ASPEN/AND criteria for Severe protein Calorie Malnutrition as evidenced by nutrition intake </= 75% of estimated energy needs for >/= 1 month as well as severe SQ loss over the tricep, moderate loss over
orbital, Severe muscle loss over calf and quads and moderate loss over buccal.
BMI 14.8
Based on the above information and your assessment, which of the following most accurately represents the patient's nutritional status?
Severe Malnutrition
Other (please specify)Unable to determine
Arnett Criteria ([employer] Hospitalist 2017)
2 or more criteria must be present for either
non severe or severe malnutrition
Note that the criteria differs related to the
presence of an acute or chronic illness
Acute Illness Chronic Illness
Energy Intake Non Severe: <75% for >7 days Non Severe: <75% for >1 month
Severe: <50% for >5 days Severe: <75% for >1 month
Weight Loss Non Severe: 1-2% over 1 week Non Severe: 5% over 1 month
5% over 1 month 7.5% over 3 months
7.5% over 3 months 10% over 6 months
1 year N/A 20% over 1 year
Severe: >2% over 1 week Severe: >5% over 1 month
>5% over 1 month >7.5% over 3 months
>7.5% over 3 months >10% over 6 months
1 year N/A >20% over 1 year
Body Fat Non Severe: Mild Decrease Non Severe: Mild Loss
Severe: Moderate Decrease Severe: Severe Loss
Muscle Mass Non Severe: Mild Decrease Non Severe: Mild Loss
Severe: Moderate Decrease Severe: Severe Loss
Fluid Accumulation Non Severe: Mild Accumulation Non Severe: Mild Accumulation
Severe: Moderate to severe Severe: Moderate to severe
accumulation accumulation
Reduced Dry Molder Strength Non Severe: N/A Non Severe: N/A
Severe: Measurably reduced Severe: Measurably reduced
Additional criteria that can be used to Determine if Mild or Moderate Malnutrition ([employer] Manual 2018)
Use of terms such as suspected, likely, concern for, or probable (associated with a specific diagnosis that is being evaluated, monitored, or treated as if it exists) are acceptable and can be coded in the inpatient setting, when documented at the
time of discharge.
Thank you,
Huma AYALAN, RN, CCDS
CDI Specialist
[phone]
Please use your independent medical judgment in providing your response.
== END 2024-08-30 19:56 | disposition short-term general hospital (02) | DRG 964 ==
LOC: ICU 23:12
PROVIDERS: Student in an Organized Health Care Education/Training Program; ADMITTING PHYSICIAN Hospitalist; ATTENDING PHYSICIAN Internal Medicine; CONSULT PHYSICIAN Neurological Surgery; CONSULT PHYSICIAN Psychiatry & Neurology Psychiatry; EMERGENCY PHYSICIAN Emergency Medicine; FAMILY PHYSICIAN Internal Medicine; OTHER PHYSICIAN Internal Medicine Critical Care Medicine
DX: S27.0XXA Traumatic pneumothorax, initial encounter (principal); J98.11 Atelectasis; S06.5X0A Traumatic subdural hemorrhage without loss of consciousness, initial encounter; S22.42XA Multiple fractures of ribs, left side, initial encounter for closed fracture; S32.110A Nondisplaced Zone I fracture of sacrum, initial encounter for closed fracture; K76.9 Liver disease, unspecified; F03.90 Unspecified dementia, unspecified severity, without behavioral disturbance, psychotic disturbance, mood disturbance, and anxiety; I10 Essential (primary) hypertension; I95.9 Hypotension, unspecified; S06.6X0A Traumatic subarachnoid hemorrhage without loss of consciousness, initial encounter; I25.10 Atherosclerotic heart disease of native coronary artery without angina pectoris; R09.02 Hypoxemia; H35.30 Unspecified macular degeneration; W10.9XXA Fall (on) (from) unspecified stairs and steps, initial encounter; Y92.009 Unspecified place in unspecified non-institutional (private) residence as the place of occurrence of the external cause
CPT/HCPCS: 31500; 70450; 71045; 71250; 72125; 73030; 73502; 74176; 80048; 80053; 85025; 85027; 92523; 92610; 93005; 96361; 96374; 99285